=== PATIENT | male | born 1965 | race Caucasian/White ===

== ENCOUNTER 2019-03-12 13:20 | Emergency (ER) | payer BC ==
[2019-03-12 13:48] LABS: Influenza A Molecular POSITIVE (Negative)
[2019-03-12] MEDS ORDERED: hydrOXYzine HCL TAB* 25 MG PO ONE (14:04)
[2019-03-12] MEDS ORDERED: Oseltamivir CAP* 75 MG CAP PO ONE (14:04)
--- NOTE | 2019-03-12 14:08 | ED ---
Influenza-Like Illness - HPI Summary HPI Summary: 53 year old male presents with flulike symptoms for the past two days. He states he's been having fevers and chills. He admits to cough and sinus congestion. He states he feels achy all over. He's also had this recurring rash for the past 6 months. He states rash is itchy. He came back yesterday and got worse. Started on his right wrist and then spread from there. He states he took an allergy pill and it was working and now it is not. Denies anyone having a similar rash. no new soaps or products. Has no significant medical history. - History of Current Complaint Chief Complaint: EDFluSymptoms Time Seen by Provider: 03/12/19 13:52 - Allergy/Home Medications Allergies/Adverse Reactions: Allergies Allergy/AdvReac Type Severity Reaction Status Date / Time No Known Allergies Allergy Verified 03/12/19 13:27 PMH/Surg Hx/FS Hx/Imm Hx Endocrine/Hematology History: Denies: Hx Anticoagulant Therapy Respiratory History: Denies: Hx Asthma Infectious Disease History: No Infectious Disease History: Denies: Traveled Outside the [place] in Last 30 Days - Family History Known Family History: Positive: Non-Contributory - Social History Substance Use Type: Reports: None Smoking Status (MU): Unknown if Ever Smoked Review of Systems Positive: Fever, Chills Positive: Nasal Discharge. Negative: Sore Throat Negative: Chest Pain Negative: Shortness Of Breath Positive: Rash All Other Systems Reviewed And Are Negative: Yes Physical Exam Triage Information Reviewed: Yes Vital Signs On Initial Exam: Initial Vitals Temp Pulse Resp BP Pulse Ox 97.7 F 78 18 121/87 100 03/12/19 13:23 03/12/19 13:23 03/12/19 13:23 03/12/19 13:23 03/12/19 13:23 Vital Signs Reviewed: Yes Appearance: Positive: Well-Appearing Skin: Positive: Warm, Dry, Other - urticaria rash across arms, back and abd Head/Face: Positive: Normal Head/Face Inspection Eyes: Positive: Normal, EOMI, VIN, Conjunctiva Clear ENT: Positive: Normal ENT inspection, Pharynx normal Respiratory/Lung Sounds: Positive: Clear to Auscultation, Breath Sounds Present Cardiovascular: Positive: Normal, RRR Abdomen Description: Positive: Nontender, Soft Bowel Sounds: Positive: Present Musculoskeletal: Positive: Normal Neurological: Positive: Normal Psychiatric: Positive: Normal Procedures - Sedation Patient Received Moderate/Deep Sedation with Procedure: No Diagnostics - Vital Signs Vital Signs Temp Pulse Resp BP Pulse Ox 03/12/19 13:23 97.7 F 78 18 121/87 100 - Laboratory Lab Results: Lab Results 03/12/19 Range/Units 13:29 Influenza A (Rapid) Positive A (Negative) Influenza B (Rapid) Not Reportable Lab Statement: Any lab studies that have been ordered have been reviewed, and results considered in the medical decision making process. Flu Symptom Course/Dx - Course Course Of Treatment: 53 year old male presents with flulike symptoms for the past two days. He states he's been having fevers and chills. He admits to cough and sinus congestion. He states he feels achy all over. He's also had this recurring rash for the past 6 months. He states rash is itchy. He came back yesterday and got worse. Started on his right wrist and then spread from there. He states he took an allergy pill and it was working and now it is not. Denies anyone having a similar rash. no new soaps or products. Has no significant medical history. On exam lungs clear to auscultation. Pharynx normal. Sinus congestion noted. has urticaria rash across body. will place on hydroxyzine and prednisone for rash. Flu A positive. Will place on Tamiflu. Told to treat supportively for the flu. Patient understands and agrees the plan. - Diagnoses Differential Diagnosis/HQI/PQRI: Positive: Influenza, Pneumonia, Upper Respiratory Infection Provider Diagnoses: Influenza, Rash Discharge ED - Sign-Out/Discharge Documenting (check all that apply): Patient Departure - Discharge Plan Condition: Good Disposition: HOME Prescriptions: hydrOXYzine HCL TAB* [Atarax 25 MG TAB*] 25 mg PO QID PRN #10 tab PRN Reason: Hives Oseltamivir CAP* [Tamiflu CAP*] 75 mg PO BID #9 cap predniSONE 50 mg TAB [Deltasone 50 mg TAB] 50 mg PO DAILY #4 tab Patient Education Materials: Influenza (ED) Forms: *Work Release Referrals: [facility] [Outside] Additional Instructions: Take Tamiflu twice for 5 days first dose given in ED take prednisone once a day for 4 days take hydroxyine every 6 hours during day, use benadryl every 6 hours as night for itching Take Tylenol and ibuprofen for muscle aches and fever every 6 hours Saline rinse can be used multiple times a day for nasal congestion Drink plenty of fluids Follow up with primary within 5 days Return to ED if develop any new or worsening symptoms - Billing Disposition and Condition Condition: GOOD Disposition: Home
[2019-03-12 14:25] VITALS: BP 121/73
== END 2019-03-12 14:23 | disposition home or self-care (01) ==
LOC: ED 13:20
DX: J11.1 Influenza due to unidentified influenza virus with other respiratory manifestations (principal); R21 Rash and other nonspecific skin eruption
CPT/HCPCS: 99282; A9270-GY; J7512